=== PATIENT | female | born 1950 | race Two or more races ===

== ENCOUNTER 2018-03-05 07:15 | Day surgery (SDC) | payer OTHER ==
[2018-03-04 16:37] VITALS: BMI 31.2
[~2018-03-05 07:15] MED LIST: ACETAMINOPHEN 325 MG TABLET (FP) PO PRN; CIPROFLOXACIN HCL 0.3% OPHTH 2.5ML BOTTLE OP SCH; KETOROLAC TROMETHAMINE 0.5% EYE DROP 1 DROP DROPS OP SCH; PHENYLEPHRINE 2.5% OPHTH SOLN 15 ML BOTTLE OP SCH; TOBRAMYCIN/DEXAMETHASONE OPHTH. OINTMENT 1 TUBE TP ONE; TROPICAMIDE 1% OPHTH SOLN 15 ML BOTTLE OP SCH
[2018-03-05] MEDS ORDERED: LIDOCAINE HCL/PF 1% SDV 5ML VIAL ONE (07:19)
[2018-03-05] MEDS ORDERED: LIDOCAINE HCL 2% JELLY (5 ML/TUBE) ONE (07:19)
[2018-03-05] MEDS ORDERED: EPINEPHrine/PF 1 MG/1 ML (1:1,000) AMPULE ONE (07:19)
[2018-03-05] MEDS ORDERED: TOBRAMYCIN/DEXAMETHASONE OPHTH. OINTMENT 1 TUBE ONE (07:19)
[2018-03-05 07:45] VITALS: TEMP 97.4
[2018-03-05] MEDS ORDERED: CIPROFLOXACIN HCL 0.3% OPHTH 2.5ML BOTTLE ONE (07:51)
[2018-03-05] MEDS ORDERED: TROPICAMIDE 1% OPHTH SOLN 15 ML BOTTLE ONE (07:51)
[2018-03-05] MEDS ORDERED: KETOROLAC TROMETHAMINE 0.5% EYE DROP 1 DROP DROPS ONE (07:51)
[2018-03-05] MEDS ORDERED: PHENYLEPHRINE 2.5% OPHTH SOLN 15 ML BOTTLE ONE (07:51)
--- NOTE | 2018-03-05 08:28 | HP ---
- Patient Scheduled date of Surgery: 03/05/18 Scheduled Surgical Procedure: Phacoemulsification and cataract extraction with PCIOL Affected Eye: Right Chief Complaint (Indication for surgery): Decreased vision affecting ADLs - Ocular History Other Eye History: Other (conjunctival melanosis) Eye Medications: vigamox 3/0, ilevro 1/0 Previous Eye Surgery: none - Medical History Illnesses: Cardiac Disorders (Chest pain, SOB, [place], Valve disease) (s/p stent), Hypertension, Hypercholesterolemia, Dementia, Other (RA) Current Medications: Ambulatory Orders Clopidogrel Bisulfate [Clopidogrel] 75 mg PO DAILY 01/01/14 Furosemide [Lasix -] 40 mg PO DAILY 01/01/14 Glyburide/Metformin HCl [Glyburide-Metformin 5-500 mg] 1 each PO DAILY 01/01/14 Loratadine 10 mg PO DAILY 01/01/14 Metoprolol Tartrate [Lopressor -] 50 mg PO BID 01/01/14 Omeprazole [Prilosec] 40 mg PO DAILY 01/01/14 Tramadol HCl [Ultram] 50 mg PO PRN PRN 01/01/14 Aspirin Coated [Ecotrin -] 81 mg PO DAILY 03/05/18 Glipizide 5 mg PO BID 03/05/18 Oxycodone HCl/Acetaminophen [Percocet 5-325 mg Tablet] 1 - 2 tab PO BID Allergies/Adverse Reactions: Allergies Allergy/AdvReac Type Severity Reaction Status Date / Time No Known Allergies Allergy Verified 03/05/18 07:49 Ocular Examination - Best Corrected Visual Acuity Distance: Right eye: 20/400 Distance: Left eye: 20/40 - External/Slit Lamp Examination Abnormalities: decreased TBUT - Intraocular Pressure Intraocular Pressure - Right eye: 16 Intraocular Pressure-Left eye: 16 - Lens Lens: 3+ NS 2+ cortical 2+ psc - Vitreous/Retina Vitreous/Retina: c:d 0.45 m/v/p wnl - Special Examination M - Right eye: -3.25-1.00 x 145 M - Left eye: -1.75 K - Right eye: 43.75/44.50 x 180 K - Left eye: 43.75/44.50 x 180 AL - Right eye: 22.82 AL - Left eye: 22.92 IOL bag: +22.5 IOL sulcus: +21.5 IOL AC: +18.5 - Impression Impression: Cataract Right Eye - Plan Plan: Phacoemulsification and cataract extraction - IOL Right eye Post-hospital care will be provided in office on: 03/06/18
--- NOTE | 2018-03-05 08:38 | HP ---
History & Physical Update - History History: No Change - Physical Physical: No Change - Assessment Assessment: No Change - Plan Plan: No Change (Reviewed DR. Parikh's H and P from 02/23/18 no changes)
[2018-03-05] MEDS ORDERED: MIDAZOLAM HCL 2 MG/2 ML SINGLE DOSE VIAL ONE (08:39)
[2018-03-05] MEDS ORDERED: LIDOCAINE HCL 2% JELLY (5 ML/TUBE) TP ONE (08:46)
[2018-03-05] MEDS ORDERED: POVIDONE-IODINE 5% OPHTHALMIC PREP 30 ML SOLUTION OD ONE (08:48)
[2018-03-05] MEDS ORDERED: LABETALOL HCL 5 MG/1 ML (100MG/20 ML VIAL) ONE ×2 (08:53→08:55)
[2018-03-05] MEDS ORDERED: TRYPAN BLUE 0.5 ML DISP.SYRIN ONE (08:59)
[2018-03-05] MEDS ORDERED: BSS (NA/CA/MG/K) BALANCED SALT SOLUTION OPHTH SOLN 15 ML BOTTLE OD ONE (09:00)
[2018-03-05] MEDS ORDERED: LIDOCAINE HCL 1% PRESERVATIVE FREE - 30ML VIAL IO ONE (09:00)
[2018-03-05] MEDS ORDERED: TRYPAN BLUE 0.5 ML DISP.SYRIN TP ONE (09:00)
[2018-03-05] MEDS ORDERED: CHONDROITIN SU A/HYALUR SOD 1 KIT IO ONE (09:00)
[2018-03-05] MEDS ORDERED: EPINEPHrine/PF 1 MG/1 ML (1:1,000) AMPULE SQ ONE (09:07)
[2018-03-05] MEDS ORDERED: TETRACAINE 0.5% OPHTH SOLN 2 ML BOTTLE OD ONE (09:19)
[2018-03-05] MEDS ORDERED: TOBRAMYCIN/DEXAMETHASONE OPHTH. OINTMENT 1 TUBE TP ONE (09:34)
--- NOTE | 2018-03-05 09:45 | OP ---
Ophthalmology Operative Note Pre-Operative Diagnosis: Cataract Affected Eye: Right Operation: Phacoemulsification and cataract extraction with PCIOL (using trypan blue) Findings: mature cataract Post-Operative Diagnosis: Other (mature cataract right eye) Transcribing Operators Supervisor: None Anesthesiologist: Yadiel Arroyo Anesthesia: Topical Specimens Removed: none Estimated blood loss: < 1 cc Drains & Tubes with Location: none Operative Report Dictated: Yes
--- NOTE | 2018-03-05 10:30 | OP ---
DATE OF OPERATION: DATE OF DICTATION: 03/05/2018 PREOPERATIVE DIAGNOSIS: Cataract, right eye. POSTOPERATIVE DIAGNOSIS: Mature cataract, right eye. PROCEDURE: Phacoemulsification and cataract extraction with insertion of posterior chamber intraocular lens using Trypan blue, right eye. SURGEON: Lorie Warren MD LIAISON PLANNER: None. ANESTHESIA: Topical. ANESTHESIOLOGIST: Yadiel Arroyo CRNA OPERATIVE PROCEDURE: The patient received 2% lidocaine gel and then was gently sedated and prepped and draped in the usual sterile fashion so as to expose only the right eye. Ophthalmic Betadine was instilled into the inferior fornix and lashes were taped out of the surgical field. An eyelid speculum was placed into the right eye. Paracentesis was made in superior clear cornea at the limbus. Then 0.5 mL of nonpreserved lidocaine 1% was injected into the anterior chamber. An air bubble was then injected into the anterior chamber, and Trypan blue was dripped on the anterior capsular edge. Viscoelastic material was instilled into the anterior chamber via the paracentesis. A 2.4 mm keratome blade was then used to create the main incision in temporal clear cornea at the limbus. A continuous curvilinear capsulorhexis was performed using a cystotome and Utrata forceps. Hydrodissection of the lens cortex was performed using BSS on a cannula until the nucleus was noted to be freely rotating. The phacoemulsification tip was then inserted via the main wound and used to scope 2 perpendicular grooves into the lens nucleus. The nucleus was cracked into 4 quadrants. Each quadrant was lifted out of the capsule into the iris plane and individually phacoemulsified. The remaining cortical material was then aspirated using the irrigation and aspiration port. The capsular bag was inflated using ProVisc and a preloaded AcrySof lens model AU00T0 power +22.5 diopters was injected into the capsular bag and centered using a Sinskey hook. The residual viscoelastic material was removed from the anterior chamber using irrigation and aspiration. The wound edges were hydrated using BSS. The wound was tested for leakage and was found to be watertight. Tobradex ointment was placed in the eye, and the speculum was removed from the eye. A sterile dressing and shield were placed over the eye. The patient was transferred to the recovery room in stable condition, told to follow up in 1 day. Gaye [id number] MTDD
[2018-03-05] MEDS ORDERED: ONDANSETRON 4 MG/2 ML VIAL IVPUSH PRN (11:46)
[2018-03-05 11:48] VITALS: BP 115/51; PULSE 67
[2018-03-05] MEDS ORDERED: LACTATED RINGERS SOLUTION 1,000 ML IV SCH (12:00)
== END 2018-03-05 11:20 | disposition home or self-care (01) ==
LOC: JASU-SURG 07:15
PROVIDERS: ATTEND Ophthalmology
PROC: 08RJ3JZ Replacement of Right Lens with Synthetic Substitute, Percutaneous Approach (ICD-10-PCS; principal; 2018-03-05 08:30)
DX: H25.9 Unspecified age-related cataract (principal)
CPT/HCPCS: 82962

== ENCOUNTER 2018-04-09 07:30 | Day surgery (SDC) | payer OTHER ==
[2018-04-08 14:33] VITALS: BMI 31.2
--- NOTE | 2018-04-08 16:13 | HP ---
- Patient Scheduled date of Surgery: 04/09/18 Scheduled Surgical Procedure: Phacoemulsification and cataract extraction with PCIOL Affected Eye: Left Chief Complaint (Indication for surgery): Decreased vision affecting ADLs - Ocular History Other Eye History: Other (ARMD) Eye Medications: vigamox Previous Eye Surgery: s/p ce/pciol OD - Medical History Illnesses: Cardiac Disorders (Chest pain, SOB, [place], Valve disease) (s/p Stent,), Hypertension, Diabetes, Other (RA) Current Medications: Ambulatory Orders Clopidogrel Bisulfate [Clopidogrel] 75 mg PO DAILY 01/01/14 Furosemide [Lasix -] 40 mg PO DAILY 01/01/14 Glyburide/Metformin HCl [Glyburide-Metformin 5-500 mg] 1 each PO DAILY 01/01/14 Loratadine 10 mg PO DAILY 01/01/14 Metoprolol Tartrate [Lopressor -] 50 mg PO BID 01/01/14 Omeprazole [Prilosec] 40 mg PO DAILY 01/01/14 Tramadol HCl [Ultram] 50 mg PO PRN PRN 01/01/14 Aspirin Coated [Ecotrin -] 81 mg PO DAILY 03/05/18 Glipizide 5 mg PO BID 03/05/18 Oxycodone HCl/Acetaminophen [Percocet 5-325 mg Tablet] 1 - 2 tab PO BID Allergies/Adverse Reactions: Allergies Allergy/AdvReac Type Severity Reaction Status Date / Time No Known Allergies Allergy Verified 03/05/18 07:49 Ocular Examination - Best Corrected Visual Acuity Distance: Right eye: 20/25 Distance: Left eye: 20/60 - External/Slit Lamp Examination Abnormalities: decreased TBUT, melanosis - Intraocular Pressure Intraocular Pressure - Right eye: 13 Intraocular Pressure-Left eye: 16 - Lens Lens: 2+ NS 2+ cortical - Vitreous/Retina Vitreous/Retina: C:D 0.4 2+ pigmentary change v/p wnl - Special Examination M - Right eye: -0.50 M - Left eye: -1.75 K - Right eye: 44/45 x125 K - Left eye: 43.75/44.25 x010 AL - Right eye: 22.82 AL - Left eye: 22.92 IOL bag: +22.0 D auooto IOL sulcus: +21.0 [id number] IOL AC: +18.0 [id number] - Impression Impression: Cataract Left Eye - Plan Plan: Phacoemulsification and cataract extraction - IOL Left eye Post-hospital care will be provided in office on: 04/10/18
[~2018-04-09 07:30] MED LIST changes: +CHONDROITIN SU A/HYALUR SOD 1 KIT IO ONE; -CIPROFLOXACIN HCL 0.3% OPHTH 2.5ML BOTTLE OP SCH; -KETOROLAC TROMETHAMINE 0.5% EYE DROP 1 DROP DROPS OP SCH; -PHENYLEPHRINE 2.5% OPHTH SOLN 15 ML BOTTLE OP SCH; +PHENYLEPHRINE 2.5% OPHTH SOLN 15 ML BOTTLE OS SCH; -TOBRAMYCIN/DEXAMETHASONE OPHTH. OINTMENT 1 TUBE TP ONE; -TROPICAMIDE 1% OPHTH SOLN 15 ML BOTTLE OP SCH
[2018-04-09] MEDS ORDERED: MIDAZOLAM HCL 2 MG/2 ML SINGLE DOSE VIAL ONE (07:55)
[2018-04-09] MEDS ORDERED: CIPROFLOXACIN HCL 0.3% OPHTH 2.5ML BOTTLE ONE (08:04)
[2018-04-09] MEDS ORDERED: KETOROLAC TROMETHAMINE 0.5% EYE DROP 1 DROP DROPS ONE (08:05)
[2018-04-09] MEDS ORDERED: PHENYLEPHRINE 2.5% OPHTH SOLN 15 ML BOTTLE ONE (08:05)
[2018-04-09] MEDS ORDERED: TROPICAMIDE 1% OPHTH SOLN 15 ML BOTTLE ONE (08:05)
[2018-04-09] MEDS: KETOROLAC TROMETHAMINE 0.5% EYE DROP 1 DROP DROPS OP SCH ×2 (08:09→08:13)
[2018-04-09] MEDS: PHENYLEPHRINE 2.5% OPHTH SOLN 15 ML BOTTLE OP SCH ×2 (08:09→08:14)
[2018-04-09] MEDS: CIPROFLOXACIN HCL 0.3% OPHTH 2.5ML BOTTLE OP SCH ×2 (08:09→08:13)
[2018-04-09] MEDS: TROPICAMIDE 1% OPHTH SOLN 15 ML BOTTLE OP SCH ×2 (08:14→08:15)
--- NOTE | 2018-04-09 08:30 | HP ---
History & Physical Update - History History: No Change - Physical Physical: No Change - Assessment Assessment: No Change - Plan Plan: No Change (Dr Parikh's H and P reviewed , no changes)
[2018-04-09] MEDS ORDERED: MOXIFLOXACIN HCL 0.5% OPHTHALMIC 3 ML BOTTLE OS SCH (08:45)
[2018-04-09] MEDS ORDERED: TROPICAMIDE 1% OPHTH SOLN 15 ML BOTTLE OS SCH (08:45)
[2018-04-09] MEDS ORDERED: EPINEPHrine/PF 1 MG/1 ML (1:1,000) AMPULE IC ONE (08:50)
[2018-04-09] MEDS ORDERED: LIDOCAINE HCL 2% JELLY (5 ML/TUBE) TP ONE (08:50)
[2018-04-09] MEDS ORDERED: POVIDONE-IODINE 5% OPHTHALMIC PREP 30 ML SOLUTION OS ONE (08:50)
[2018-04-09] MEDS ORDERED: LIDOCAINE HCL 1% PRESERVATIVE FREE - 30ML VIAL IO ONE (08:55)
[2018-04-09] MEDS ORDERED: BSS (NA/CA/MG/K) BALANCED SALT SOLUTION OPHTH SOLN 15 ML BOTTLE OS ONE (08:59)
[2018-04-09] MEDS ORDERED: TOBRAMYCIN 0.3% OPHTH OINT 3.5 GM OS ONE (09:00)
[2018-04-09] MEDS ORDERED: CHONDROITIN SU A/HYALUR SOD 1 KIT IO ONE (09:00)
--- NOTE | 2018-04-09 09:35 | OP ---
Ophthalmology Operative Note Pre-Operative Diagnosis: Cataract Affected Eye: Left Operation: Phacoemulsification and cataract extraction with PCIOL Findings: NS cataract Post-Operative Diagnosis: Same as Pre-op Senior Health Educator: None Anesthesiologist: Eric Renee Anesthesia: Topical Specimens Removed: none Estimated blood loss: none Drains & Tubes with Location: none Operative Report Dictated: Yes
[2018-04-09] MEDS ORDERED: POVIDONE-IODINE 5% OPHTHALMIC PREP 30 ML SOLUTION ONE (09:46)
[2018-04-09] MEDS ORDERED: LIDOCAINE HCL 2% JELLY (5 ML/TUBE) ONE (09:46)
[2018-04-09] MEDS ORDERED: EPINEPHrine/PF 1 MG/1 ML (1:1,000) AMPULE ONE (09:47)
[2018-04-09] MEDS ORDERED: TOBRAMYCIN/DEXAMETHASONE OPHTH. OINTMENT 1 TUBE ONE (09:48)
--- NOTE | 2018-04-09 10:10 | OP ---
DATE OF OPERATION: DATE OF DICTATION: 04/09/2018 PREOPERATIVE DIAGNOSIS: Nuclear sclerotic cataract, left eye. POSTOPERATIVE DIAGNOSIS: Nuclear sclerotic cataract, left eye. PROCEDURE: Phacoemulsification and cataract extraction with insertion of posterior chamber intraocular lens, left eye. SURGEON: Lorie Warren M.D. LOG INSPECTOR: None. ANESTHESIA: Topical. ANESTHESIOLOGIST: Eric Renee, REF-[employer] OPERATOR OPERATIVE PROCEDURE: Following satisfactory intravenous sedation, the patient received 2% lidocaine gel and was then prepped and draped in the usual sterile fashion such as to expose only the left eye. Ophthalmic Betadine was instilled into the inferior fornix and the lashes were taped out of the surgical field. An eyelid speculum was placed into the left eye. A paracentesis was made in superior temporal clear cornea at the limbus; 0.5 mL of non-preserved lidocaine 1% was injected into the anterior chamber. Viscoelastic material was instilled into the anterior chamber via the paracentesis. A 2.4 mm keratome was then used to create the main incision in temporal clear cornea at the limbus. A continuous curvilinear capsulorrhexis was performed using a cystotome and Utrata forceps. Hydrodissection of the lens cortex was performed using BSS on a cannula until the nucleus was noted to be freely rotating. The phacoemulsification tip was then inserted via the main wound and used to sculpt 2 perpendicular grooves into the lens nucleus. The nucleus was cracked into 4 quadrants. Each quadrant was lifted out of the capsule into the iris plane and individually phacoemulsified. The remaining cortical material was then aspirated using the irrigation and aspiration port. The capsular bag was inflated using Provisc and a preloaded AcrySof lens model [id number], power +22.0 diopters, was injected into the capsular bag and centered using a Sinskey hook. The residual Viscoelastic material was removed from the anterior chamber using irrigation and aspiration. The wound edges were hydrated using BSS. The wound was tested for leakage. It was found to be water tight. Tobradex ointment was placed in the eye and the speculum was removed from the eye. A sterile dressing and shield were placed over the eye and the patient was transferred to the recovery room in stable condition and told to follow up in 1 day. LORIE WARREN M.D. DAWOOD/[id number]
[2018-04-09 10:39] VITALS: BP 170/69; PULSE 62; TEMP 98.1
== END 2018-04-09 10:30 | disposition home or self-care (01) ==
LOC: JASU-SURG 07:30
PROVIDERS: ATTEND Ophthalmology
PROC: 08RK3JZ Replacement of Left Lens with Synthetic Substitute, Percutaneous Approach (ICD-10-PCS; principal; 2018-04-09 08:30)
DX: H25.12 Age-related nuclear cataract, left eye (principal)
CPT/HCPCS: 82962

== ENCOUNTER 2018-09-15 11:02 | Emergency (ER) | payer OTHER ==
[2018-09-15 11:23] VITALS: BMI 23.4
[2018-09-15] MEDS ORDERED: morphine CARPU-JECT 2 MG/1 ML DISP.SYRIN IVPUSH ONE (12:27)
[2018-09-15 12:49] LABS: BASO % 0.8 % (0-2.0); EOS % 5.3 % (0-4.5); HEMATOCRIT 32.4 % (32.4-45.2); HEMOGLOBIN 10.8 GM/dL (10.7-15.3); LYMPH % 27.2 % (8-40); MCH 23.4 pg (25.7-33.7); MCHC 33.2 g/dl (32.0-36.0); MEAN CELL VOLUME 70.4 fl (80-96); MEAN PLT VOLUME 8.4 fl (7.5-11.1); MONO % 10.1 % (3.8-10.2); NEUT % 56.6 % (42.8-82.8); PLATELET COUNT 307 K/MM3 (134-434)
[2018-09-15] MEDS ORDERED: MORPHINE SULFATE 2 MG/ML VIAL ONE (13:00)
[2018-09-15 13:06] LABS: INR 1.02 (0.83-1.09)
[2018-09-15 13:09] LABS: ACTIVATED PTT 26.6 SECONDS (25.2-36.5)
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
[2018-09-15 13:33] LABS: ALBUMIN 3.4 g/dl (3.4-5.0); ALK PHOS 78 U/L (45-117); ANION GAP 7 MMOL/L (8-16); BILIRUBIN,TOTAL 0.3 mg/dL (0.2-1); BLOOD UREA NITROGEN 30 mg/dL (7-18); CHLORIDE 100 mmol/L (98-107); CO2 29 mmol/L (21-32); CREATININE 1.2 mg/dL (0.55-1.3); GLUCOSE,RANDOM 115 mg/dL (74-106); POTASSIUM 3.6 mmol/L (3.5-5.1); SGPT/ALT 22 U/L (13-61); SODIUM 136 mmol/L (136-145); TOT PROT 7.3 g/dl (6.4-8.2)
[2018-09-15] MEDS ORDERED: SODIUM CHLORIDE 500 ML IV STA (13:47)
[2018-09-15 13:48] LABS: URINE APPEARANCE CLEAR; URINE BILIRUBIN NEGATIVE (<2.0 mg/dL); URINE COLOR COLORLESS; URINE GLUCOSE (UA) NEGATIVE (NEGATIVE); URINE KETONE NEGATIVE (NEGATIVE); URINE LEUK ESTERASE NEGATIVE (NEGATIVE); URINE NITRITE NEGATIVE (NEGATIVE); URINE PROTEIN NEGATIVE (NEGATIVE); URINE UROBILINOGEN NEGATIVE mg/dL (0.2-1.0)
--- NOTE | 2018-09-15 14:38 | EKG ---
Test Reason : Blood Pressure : / mmHG Vent. Rate : 066 BPM Atrial Rate : 066 BPM P-R Int : 174 ms QRS Dur : 080 ms QT Int : 420 ms P-R-T Axes : 059 -05 037 degrees QTc Int : 440 ms POOR DATA QUALITY, INTERPRETATION MAY BE ADVERSELY AFFECTED NORMAL SINUS RHYTHM SEPTAL INFARCT , AGE UNDETERMINED ABNORMAL ECG Confirmed by Julio Elaine MD ([id number]) on 09/15/2018 2:38:01 PM Referred By: Confirmed By:Julio Elaine MD
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
[2018-09-15 17:13] VITALS: BP 151/66; PULSE 62; TEMP 98
[2018-09-15] MEDS ORDERED: LIDOCAINE HCL 2% (20ML MULTI-DOSE VIAL) NR ONE (19:38)
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
== END 2018-09-15 20:09 | disposition home or self-care (01) ==
LOC: JER 11:02
PROC: 0PSPXZZ Reposition Right Metacarpal, External Approach (ICD-10-PCS; principal; 2018-09-15)
PROC: 3E033NZ Introduction of Analgesics, Hypnotics, Sedatives into Peripheral Vein, Percutaneous Approach (ICD-10-PCS; 2018-09-15)
PROC: 3E0337Z Introduction of Electrolytic and Water Balance Substance into Peripheral Vein, Percutaneous Approach (ICD-10-PCS; 2018-09-15)
DX: S62.306A Unspecified fracture of fifth metacarpal bone, right hand, initial encounter for closed fracture (principal); V43.62XA Car passenger injured in collision with other type car in traffic accident, initial encounter; Y92.89 Other specified places as the place of occurrence of the external cause; S63.259A Unspecified dislocation of unspecified finger, initial encounter; I10 Essential (primary) hypertension; I25.10 Atherosclerotic heart disease of native coronary artery without angina pectoris; S63.501A Unspecified sprain of right wrist, initial encounter; E11.9 Type 2 diabetes mellitus without complications; E03.9 Hypothyroidism, unspecified
CPT/HCPCS: 36415; 70450-TC; 71045-TC-FY; 71260-TC; 72125-TC; 72128-TC; 72131-TC; 73030-TC-RT-FY; 73060-TC-RT-FY; 73070-TC-RT-FY; 73110-TC-RT-FY; 73130-TC-RT-FY; 74177-TC; 80053; 81003; 82550; 82553; 83735; 84484; 85025; 85610; 85730; 86850; 86900; 86901; 93005; 93010; 99283-25

== ENCOUNTER 2024-11-14 09:03 | Inpatient (IN) | payer OTHER, MEDICARE ==
[2024-11-14 09:41] VITALS: BMI 28.9
[2024-11-14] MEDS ORDERED: ONDANSETRON 4 MG/2 ML VIAL ONE (10:02)
[2024-11-14] MEDS ORDERED: ACETAMINOPHEN INJECTION 100 ML ONE (10:02)
[2024-11-14] MEDS ORDERED: FAMOTIDINE 20 MG/50 ML IVPB 20 MG/50 ML MG IVPB ONE (10:02)
[2024-11-14] MEDS: ONDANSETRON 4 MG/2 ML VIAL IVPUSH ONE (10:10)
[2024-11-14] MEDS: SODIUM CHLORIDE 1,000 ML IV STA (10:10)
[2024-11-14] MEDS: FAMOTIDINE 20 MG/50 ML IVPB 20 MG/50 ML MG IVPB ONE (10:10)
[2024-11-14] MEDS: ACETAMINOPHEN 1000 MG/100 ML BAG IVPB ONE (10:17)
[2024-11-14 10:24] LABS: HEMATOCRIT 47.9 % (34.1-44.9); HEMOGLOBIN 15.4 g/dL (11.2-15.7); MCHC 32.2 g/dl (32.2-35.5); MEAN CELL VOLUME 79.7 fl (79.4-94.8); MEAN PLT VOLUME 9.7 fl (9.4-12.3); PLATELET COUNT 342 x10^3/uL (182-369); RDW 14.4 % (12.4-16.6)
[2024-11-14 10:40] LABS: INR 0.91 (0.83-1.09)
[2024-11-14 10:42] LABS: ACTIVATED PTT 27.1 SECONDS (25.2-36.5)
[2024-11-14 10:52] LABS: CHLORIDE 95 mmol/L (98-107); SODIUM 129 mmol/L (136-145)
[2024-11-14 10:54] LABS: CALCIUM 9.7 mg/dL (8.5-10.1)
[2024-11-14 10:55] LABS: ALBUMIN 3.8 g/dl (3.4-5.0); BLOOD UREA NITROGEN 25.9 mg/dL (7-18); CO2 27 mmol/L (21-32); GLUCOSE,RANDOM 180 mg/dL (74-106); MAGNESIUM 2.1 mg/dL (1.8-2.4)
[2024-11-14 10:58] LABS: CREATININE 1.1 mg/dL (0.55-1.3); SGOT/AST 95 U/L (15-37)
[2024-11-14 11:00] LABS: BILIRUBIN,TOTAL 0.3 mg/dL (0.2-1); TOT PROT 8.4 g/dl (6.4-8.2)
[2024-11-14 11:01] LABS: ALK PHOS 101 U/L (45-117)
[2024-11-14 11:12] LABS: ANION GAP 7 mmol/L (4-13); LACTIC ACID 2.8 mmol/L (0.4-2.0); POTASSIUM 8.3 mmol/L (3.5-5.1); SGPT/ALT 41 U/L (13-61)
[2024-11-14] MEDS: LACTATED RINGERS SOLUTION 1000 ML INFUS.BAG IV ONE (11:54)
[2024-11-14] MEDS ORDERED: PIPERACILLIN/TAZOB 4.5 GM 4.5 GM/100 ML BAG IVPB ONE (12:24)
[2024-11-14 12:31] LABS: POTASSIUM 3.5 mmol/L (3.5-5.1)
[2024-11-14 12:32] LABS: EPI CELLS 3 /uL (0-25.1); HYALINE CASTS 0 /uL (0-3.1); PH,URINE 5.5 (5.0-8.0); URINE APPEARANCE CLEAR; URINE BACTERIA 0 /uL (0-1359); URINE BILIRUBIN NEGATIVE (NEGATIVE); URINE COLOR YELLOW; URINE GLUCOSE (UA) 3+ (NEGATIVE); URINE KETONE NEGATIVE (NEGATIVE); URINE LEUK ESTERASE NEGATIVE (NEGATIVE); URINE NITRITE NEGATIVE (NEGATIVE); URINE PROTEIN 2+ (NEGATIVE); URINE RBC 11 /uL (0-23.9); URINE UROBILINOGEN 0.2 mg/dL (0.2-1.0); URINE WBC 5 /uL (0-25.8)
[2024-11-14 12:33] LABS: BLOOD UREA NITROGEN 25.5 mg/dL (7-18)
[2024-11-14] MEDS: PIPERACILLIN/TAZOB 4.5 GM 4.5 GM in DEXTROSE 5%-WATER 100 ML IVPB ONE (12:34)
[2024-11-14 12:36] LABS: CREATININE 0.9 mg/dL (0.55-1.3)
[2024-11-14 12:46] LABS: LACTIC ACID 2.3 mmol/L (0.4-2.0)
[2024-11-14] MEDS ORDERED: traMADol HCL 50 MG TABLET PO PRN (16:17)
[2024-11-14 16:32] LABS: ABSOLUTE IMMATURE GRANULOCYTES 0.08 x10^3/uL (0.0-0.031); BASOPHILS # 0.03 x10^3/uL (0.01-0.08); HEMATOCRIT 37.8 % (34.1-44.9); HEMOGLOBIN 12.5 g/dL (11.2-15.7); MCHC 33.1 g/dl (32.2-35.5); MEAN CELL VOLUME 77.8 fl (79.4-94.8); MEAN PLT VOLUME 9.4 fl (9.4-12.3); MONOCYTE # 1.05 x10^3/uL (0.24-0.86); MONOCYTE % 5.5 % (4.7-12.5); PLATELET COUNT 304 x10^3/uL (182-369)
[2024-11-14] MEDS: INSULIN ASPART SLIDING SCALE (NOVOLOG) 1 VIAL SQ SCH (17:07)
[2024-11-14] MEDS: METOPROLOL TARTRATE 50 MG TABLET (FP) PO SCH (21:27)
[2024-11-14] MEDS: QUEtiapine FUMARATE 25 MG TABLET PO SCH (21:27)
[2024-11-14] MEDS: HEPARIN NA (PORCINE) 5,000 UNITS/ML 1ML VIAL SQ SCH (21:27)
[2024-11-14] MEDS ORDERED: ZOLPIDEM TARTRATE 5 MG TABLET PO PRN (22:00)
[2024-11-15 09:12] LABS: ABSOLUTE IMMATURE GRANULOCYTES 0.05 x10^3/uL (0.0-0.031); BASOPHILS # 0.03 x10^3/uL (0.01-0.08); EOSINOPHIL % 0.3 % (0.7-5.8); EOSINOPHILS # 0.04 x10^3/uL (0.04-0.36); HEMATOCRIT 36.2 % (34.1-44.9); HEMOGLOBIN 11.8 g/dL (11.2-15.7); MCHC 32.6 g/dl (32.2-35.5); MEAN CELL VOLUME 79.9 fl (79.4-94.8); MONOCYTE # 1.17 x10^3/uL (0.24-0.86); RDW 14.6 % (12.4-16.6)
[2024-11-15] MEDS: INSULIN ASPART SLIDING SCALE (NOVOLOG) 1 VIAL SQ SCH (09:14)
[2024-11-15 09:21] LABS: POTASSIUM 3.2 mmol/L (3.5-5.1)
[2024-11-15 09:28] LABS: CALCIUM 8.6 mg/dL (8.5-10.1)
[2024-11-15] MEDS: LEVOTHYROXINE NA 25 MCG TABLET (FP) PO SCH (09:42)
[2024-11-15] MEDS: CEFTRIAXONE 1 G/50 ML PREMIX 50 ML IVPB SCH (09:42)
[2024-11-15] MEDS: CLOPIDOGREL BISULFATE 75 MG TABLET (FP) PO SCH (09:43)
[2024-11-15] MEDS: ONDANSETRON 4 MG/2 ML VIAL IVPUSH PRN (09:45)
[2024-11-15] MEDS ORDERED: LEVOTHYROXINE NA 25 MCG TABLET (FP) PO SCH (10:00)
[2024-11-15] MEDS: POTASSIUM CHLORIDE ORAL LIQUID 20 MEQ/15 ML PO ONE (12:19)
[2024-11-15 19:07] VITALS: RESP 18
[2024-11-16 09:51] LABS: HEMATOCRIT 42.2 % (34.1-44.9); HEMOGLOBIN 13.7 g/dL (11.2-15.7); MCHC 32.5 g/dl (32.2-35.5); MEAN CELL VOLUME 79.5 fl (79.4-94.8); MEAN PLT VOLUME 10.4 fl (9.4-12.3); PLATELET COUNT 347 x10^3/uL (182-369); RDW 14.6 % (12.4-16.6)
[2024-11-16 10:19] LABS: ALBUMIN 3.5 g/dl (3.4-5.0); BLOOD UREA NITROGEN 12.6 mg/dL (7-18); CALCIUM 9.3 mg/dL (8.5-10.1); MAGNESIUM 1.9 mg/dL (1.8-2.4)
[2024-11-16 10:21] LABS: BILIRUBIN,TOTAL 0.4 mg/dL (0.2-1); CREATININE 0.8 mg/dL (0.55-1.3); PHOSPHOROUS 2.7 mg/dL (2.5-4.9); TOT PROT 6.8 g/dl (6.4-8.2)
[2024-11-16 11:33] VITALS: BP 166/69; PULSE 82; TEMP 98.8
[2024-11-17] MEDS ORDERED: PANTOPRAZOLE 40 MG TABLET PO SCH (10:00)
== END 2024-11-16 14:23 | disposition home or self-care (01) | DRG 392 ==
LOC: JER 09:03 → JERBED 15:50 → INTOOBSV 15:50 → J5S 18:21 → OBSVTOIN 11-15 11:06
PROVIDERS: ADMIT Internal Medicine
DX: K52.9 Noninfective gastroenteritis and colitis, unspecified (principal); I10 Essential (primary) hypertension; E11.9 Type 2 diabetes mellitus without complications; I25.10 Atherosclerotic heart disease of native coronary artery without angina pectoris; E78.00 Pure hypercholesterolemia, unspecified; E03.9 Hypothyroidism, unspecified; R11.2 Nausea with vomiting, unspecified; Z95.5 Presence of coronary angioplasty implant and graft
CPT/HCPCS: 0241U-QW; 36415; 71045-TC-FY; 74177-TC; 80048; 80053; 81003; 82962; 83605; 83690; 83735; 84100; 84484; 85025; 85027; 85610; 85730; 87040; 87086; 93005; 93010; 97116-GP; 97161-GP; 99291; G0378; J0131; J1644; Q9967